=== PATIENT | female | born 1990 | race American Indian/Alaskan Native ===

== ENCOUNTER 2017-10-30 21:21 | Emergency (ER) | payer OTHER ==
[2017-10-30 21:34] VITALS: BP 109/69; PULSE 71; RESP 18; TEMP 97.8; O2SAT 100
--- NOTE | 2017-10-30 22:24 | ED PDOC ---
HPI: General Adult Time Seen by Provider: 10/30/17 21:39 Chief Complaint (Nursing): Breast Problem History Per: Patient Additional Complaint(s): Pt. states for the past 1.5 weeks she's had a sore lump on her left breast. Reports symptoms began when she started "PMSing" and worsened when her period started. Denies nipple discharge, skin changes, fever, trauma, family hx of breast CA, chest pain, SOB. Past Medical History Reviewed: Historical Data, Nursing Documentation, Vital Signs Vital Signs: Last Vital Signs Temp 97.8 F 10/30/17 21:32 Pulse 71 10/30/17 21:32 Resp 18 10/30/17 21:32 BP 109/69 10/30/17 21:32 Pulse Ox 100 10/30/17 21:32 - Surgical History Surgical History: No Surg Hx - Family History Family History: States: No Known Family Hx - Social History Current smoker - smoking cessation education provided: No Ex-Smoker (has not smoked in the last 12 months): No - Home Medications Home Medications: Ambulatory Orders Medication Instructions Recorded Naproxen [Naprosyn] 500 mg PO BID PRN #14 tab 10/30/17 - Allergies Allergies/Adverse Reactions: Allergies Allergy/AdvReac Type Severity Reaction Status Date / Time No Known Allergies Allergy Verified 10/30/17 21:32 Review of Systems ROS Statement: Except As Marked, All Systems Reviewed And Found Negative Physical Exam - Physical Exam Appears: Positive for: Well, Non-toxic, No Acute Distress Skin: Positive for: Normal Color, Warm. Negative for: Rash Eye Exam: Positive for: Normal appearance Cardiovascular/Chest: Positive for: Regular Rate, Rhythm, Other (L breast with retroareolar mass which is mildly tender; both breasts without nipple discharge , skin changes, warmth, erythema, break in skin integrity) Respiratory: Positive for: Normal Breath Sounds Neurologic/Psych: Positive for: Alert, Oriented - ECG O2 Sat by Pulse Oximetry: 100 - Progress ED Course And Treament: Advised to f/u with OBGYN for further evaluation but is to return to ED immediately if fever or discharge develops or mass increases in size. Disposition - Clinical Impression Clinical Impression: Cyst of breast - Patient ED Disposition Is Patient to be Admitted: No - Disposition Referrals: [facility] [Outside] Disposition: Routine/Home Disposition Time: 22:15 Condition: STABLE Additional Instructions: Follow up with OBGYN for further evaluation. Return to ED immediately if symptoms worsen. Prescriptions: Naproxen [Naprosyn] 500 mg PO BID PRN #14 tab PRN Reason: Pain Instructions: Mastalgia (DC) Forms: [facility] (Cook Islander) Print Language: CHILEAN
== END 2017-10-31 00:20 | disposition home or self-care (01) ==
LOC: H.ER 21:21
DX: N60.02 Solitary cyst of left breast (principal)

== ENCOUNTER 2018-02-06 00:38 | Emergency (ER) | payer OTHER ==
[2018-02-06 00:52] VITALS: TEMP 98.3
[2018-02-06] MEDS ORDERED: Sodium Chloride 0.9% 1,000 ML IV STA (01:20)
--- NOTE | 2018-02-06 01:23 | ED PDOC ---
HPI: Abdomen Time Seen by Provider: 02/06/18 00:58 Chief Complaint (Nursing): Abdominal Pain Chief Complaint (Provider): abdominal pain History Per: Patient History/Exam Limitations: no limitations Onset/Duration Of Symptoms: Days (2 weeks), Waxing/Waning Current Symptoms Are (Timing): Still Present Location Of Pain/Discomfort: Epigastric Associated Symptoms: Nausea, Vomiting Last Bowel Movement: Yesterday Additional Complaint(s): 28 y/o female presents for evaluation of intermittent upper abdominal pain x 2 weeks, worse x 2 days. Associated nausea, vomiting x 3, and excessive belching. Denies fever, chest pain, shortness of breath, palpitations, changes in bowel movements, urinary symptoms. Tried simethicone with little relief. Past Medical History Reviewed: Historical Data, Nursing Documentation, Vital Signs Vital Signs: Last Vital Signs Temp 98.3 F 02/06/18 00:50 Pulse 91 H 02/06/18 00:50 Resp 16 02/06/18 00:50 BP 129/82 02/06/18 00:50 Pulse Ox 99 02/06/18 03:30 - Medical History PMH: No Chronic Diseases - Surgical History Surgical History: No Surg Hx - Family History Family History: States: No Known Family Hx - Home Medications Home Medications: Ambulatory Orders Medication Instructions Recorded Naproxen [Naprosyn] 500 mg PO BID PRN #14 tab 10/30/17 Famotidine [Pepcid] 20 mg PO BID #20 tab 02/06/18 Naproxen [Naprosyn] 500 mg PO Q12 PRN #20 tablet 02/06/18 Ondansetron ODT [Zofran ODT] 4 mg PO Q8 PRN #10 odt 02/06/18 - Allergies Allergies/Adverse Reactions: Allergies Allergy/AdvReac Type Severity Reaction Status Date / Time No Known Allergies Allergy Verified 10/30/17 21:32 Review of Systems ROS Statement: Except As Marked, All Systems Reviewed And Found Negative Gastrointestinal: Positive for: Nausea, Vomiting, Abdominal Pain Physical Exam - Reviewed Nursing Documentation Reviewed: Yes Vital Signs Reviewed: Yes - Physical Exam Appears: Positive for: Well, Non-toxic, Uncomfortable Head Exam: Positive for: ATRAUMATIC, NORMAL INSPECTION, NORMOCEPHALIC Skin: Positive for: Normal Color Eye Exam: Positive for: Normal appearance ENT: Positive for: Normal ENT Inspection Cardiovascular/Chest: Positive for: Regular Rate, Rhythm Respiratory: Positive for: Normal Breath Sounds Gastrointestinal/Abdominal: Positive for: Bowel Sounds, Soft, Tenderness ( epigastric) Back: Positive for: Normal Inspection Extremity: Positive for: Normal ROM Neurologic/Psych: Positive for: Alert, Oriented (x3) - Laboratory Results Result Diagrams: 02/06/18 01:10 02/06/18 01:10 - ECG O2 Sat by Pulse Oximetry: 99 - Progress ED Course And Treament: labs, urine, IV fluids, IV pepcid, IV zofran Addendum created by Bird Moore MD on 02/06/2018 4:21 AM Eastern Time ([place] & [place]) There are gallstones with 2 mm gallbladder wall.There was no right upper quadrant tenderness during the sonographic examination. Correlation with patient's pain medication status is recommended. Initial Report created on 02/06/2018 3:28 AM Eastern Time ([place] & [place]) EXAM: US Abdomen Limited, Right Upper Quadrant EXAM DATE/TIME: 02/06/2018 2:19 AM CLINICAL HISTORY: 28 years old, female; Pain; Abdominal pain; Epigastric; Additional info: Abd pain, vomiting TECHNIQUE: Real-time ultrasound of the abdomen with image documentation. Examination is focused on the right upper quadrant. COMPARISON: No relevant prior studies available. FINDINGS: Liver: Mild heterogeneous liver. Gallbladder: There are gallstones the 2 mm gallbladder wall.There was no right upper quadrant tenderness during the sonographic examination. Correlation with patient's pain medication status is recommended. Common bile duct: Normal common bile duct measuring 3 mm. Pancreas: Artifacts: Limited due to bowel gas shadowing. Limited due to shadowing from the ribs. The pancreas is not well-seen. Right kidney: Normal. No mass. No hydronephrosis. IMPRESSION: There are gallstones the 2 mm gallbladder wall.There was no right upper quadrant tenderness during the sonographic examination. Correlation with patient's pain medication status is recommended. Thank you for allowing us to participate in the care of your patient. On re-eval, patient states she is feeling better. Tolerating PO Patient educated on findings, discharged with rx Naproxen, Pepcid, Zofran Advised follow up surgery Diet modification Return precautions given Disposition - Clinical Impression Clinical Impression: Cholelithiasis - Patient ED Disposition Is Patient to be Admitted: No Counseled Patient/Family Regarding: Studies Performed, Diagnosis, Need For Followup, Rx Given - Disposition Referrals: Keira Young MD [Staff Provider] - Disposition: Routine/Home Disposition Time: 04:36 Condition: IMPROVED Prescriptions: Famotidine [Pepcid] 20 mg PO BID #20 tab Naproxen [Naprosyn] 500 mg PO Q12 PRN #20 tablet PRN Reason: Pain, Moderate (4-7) Ondansetron ODT [Zofran ODT] 4 mg PO Q8 PRN #10 odt PRN Reason: Nausea/Vomiting Instructions: Gallstones Forms: [facility] (Vietnamese)
[2018-02-06 01:34] LABS: BASO # 0.1 K/uL (0.0-0.2); BASO % 0.7 % (0.0-2.0); EOS # 0.1 K/uL (0.0-0.7); EOS % 0.6 % (0.0-4.0); HEMOGLOBIN 12.5 g/dL (12.0-16.0); LYMPH # 3.4 K/uL (1.0-4.3); LYMPH % 33.1 % (20.0-40.0); MEAN CELL VOLUME 91.7 fl (81.0-99.0); MEAN CORPUSCULAR HEMOGLOBIN 34.2 pg (27.0-31.0); MEAN CORPUSCULAR HGB CONC 37.3 g/dL (33.0-37.0); MEAN PLATELET VOLUME 7.7 fl (7.2-11.7); MONO # 0.9 K/uL (0.0-0.8); MONO % 9.2 % (0.0-10.0); NEUT # 5.7 K/uL (1.8-7.0); NEUT % 56.4 % (50.0-75.0); NRBC % 0.6 % (0.0-0.0); RBC 3.67 Mil/uL (3.80-5.20); RED CELL DISTRIBUTION WIDTH 15.6 % (11.5-14.5); WHITE BLOOD COUNT 10.2 K/uL (4.8-10.8)
[2018-02-06 01:46] LABS: ALB/GLOB RATIO 1.1 (1.0-2.1); ALBUMIN 4.7 g/dL (3.5-5.0); CALCIUM 9.4 mg/dL (8.4-10.2); GFR NON-AFRICAN AMERICAN > 60; LIPASE 37 U/L (23-300)
[2018-02-06 02:13] LABS: SQUAMOUS EPITHIAL 1 /hpf (0-5); URINE BACTERIA RARE (<OCC); URINE BILIRUBIN NEGATIVE (NEGATIVE); URINE BLOOD NEGATIVE (NEGATIVE); URINE CLARITY SLIGHTY-CLOUDY (Clear); URINE COLOR YELLOW (YELLOW); URINE GLUCOSE (UA) NEG (Normal); URINE LEUKOCYTE ESTERASE NEG Leu/uL (Negative); URINE PROTEIN NEGATIVE (NEGATIVE)
[2018-02-06 02:15] LABS: ALT/SGPT 20 U/L (9-52); AST/SGOT 67 U/L (14-36); BLOOD UREA NITROGEN 7 mg/dl (7-17)
[2018-02-06 04:46] VITALS: BP 127/78; PULSE 68; RESP 18; O2SAT 100
--- NOTE | 2018-02-06 09:08 | US ---
Date of service: 02/06/2018 HISTORY: abd pain, vomiting COMPARISON: None. TECHNIQUE: Sonographic evaluation of the right upper quadrant of the abdomen. FINDINGS: LIVER: Measures 14.0 cm in length. Normal echogenicity of the liver parenchyma. No mass. No intrahepatic bile duct dilatation. GALLBLADDER: Multiple gallstones present. No gallbladder wall thickening or pericholecystic fluid. No positive ultrasound Gill sign elicited. COMMON BILE DUCT: Measures 3 mm. No stones. No dilatation. PANCREAS: Unremarkable as visualized. No mass. No ductal dilatation. RIGHT KIDNEY: Measures 10.2 x 4.6 x 4.0 cm in length. Normal echogenicity. No calculus, mass, or hydronephrosis. AORTA: No aneurysmal dilatation. IVC: Unremarkable. OTHER FINDINGS: None . IMPRESSION: Gallstones. No secondary ancillary findings seen to suggest concomitant acute cholecystitis. Clinical follow -up recommended. Concordant results (preliminary interpretation) provided by [facility].
== END 2018-02-06 04:46 | disposition home or self-care (01) ==
LOC: H.ER 00:38
DX: K80.20 Calculus of gallbladder without cholecystitis without obstruction (principal)
CPT/HCPCS: 76705; 80053; 81003; 81025; 83690; 85025; 96361; 96374; 96375; 99284; J1885; J2405; J7030